=== PATIENT | female | born 2000 | race Caucasian/White ===

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

== ENCOUNTER 2020-03-08 11:15 | Emergency (ER) | payer MEDICAID ==
[2020-03-08] MEDS ORDERED: Acetaminophen 325 MG Tab PO ONE (11:38)
--- NOTE | 2020-03-08 12:18 | CT ---
CT neck Technique: Multiple axial sections were obtained from above C1 inferiorly to the bottom of T2. Reconstructed sagittal and coronal images were reviewed. Comparison: No prior cervical spine imaging is available. Findings: Partial block vertebra is noted between C5 and C6. Other disc spaces are maintained. Vertebral body heights are maintained. Vertebral bodies and posterior arches are intact. No acute fracture or subluxation is seen. Mild scoliosis is present. Impression: 1. 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 2. Mild scoliosis. 3. Nothing acute is appreciated on CT study of the cervical spine. Diagnostic code #2
--- NOTE | 2020-03-08 13:00 | CR ---
Chest: Portable view of the chest was obtained. Comparison: No prior chest imaging is available. Heart size and mediastinum are normal. Lungs are clear with no acute parenchymal change. No discrete acute bony abnormality is appreciated. Impression: 1. Nothing acute is seen on portable chest x-ray. Diagnostic code #1
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
== END 2020-03-08 13:17 | disposition home or self-care (01) ==
LOC: JD.ED 11:15 → SUPCPDRO 11:15 → JD.ED 13:17
DX: S16.1XXA Strain of muscle, fascia and tendon at neck level, initial encounter (principal); S40.811A Abrasion of right upper arm, initial encounter; M54.6 Pain in thoracic spine; V59.9XXA Occupant (driver) (passenger) of pick-up truck or van injured in unspecified traffic accident, initial encounter; Y92.410 Unspecified street and highway as the place of occurrence of the external cause
CPT/HCPCS: 36415; 71045; 72125; 84703; 85025; 99284; A9270; 99283

== ENCOUNTER 2021-08-16 22:33 | Emergency (ER) | payer MEDICAID ==
[2021-08-16] MEDS ORDERED: Famotidine 20 MG/2 ML SDV IVPUSH ONE (23:00)
[2021-08-16] MEDS ORDERED: EPINEPHrine 1 MG/ML SDV IM ONE (23:00)
[2021-08-16] MEDS ORDERED: methylPREDNISolone Sodium Succinate 125 MG/2 ML SDV IVPUSH ONE (23:00)
== END 2021-08-17 00:42 | disposition home or self-care (01) ==
LOC: JD.ED 22:33
DX: O9A.23 Injury, poisoning and certain other consequences of external causes complicating the puerperium (principal); T78.1XXA Other adverse food reactions, not elsewhere classified, initial encounter; Z91.018 Allergy to other foods; Z3A.11 11 weeks gestation of pregnancy
CPT/HCPCS: 96372; 96374; 96375; 99283; J0171; J2930; J3490; 99282

== ENCOUNTER 2022-03-09 01:36 | Inpatient (IN) | payer MEDICAID ==
[2022-03-09] MEDS ORDERED: Sodium Chloride 0.9% 10 ML Syringe FLUSH PRN (07:16)
[2022-03-09] MEDS ORDERED: Oxytocin/Lactated Ringers 10 UNIT/1,000 ML BAG IV SCH ×2 (07:30)
[2022-03-09] MEDS ORDERED: Misoprostol 25 MCG (1/4 of 100 MCG) Tab VAG ONE ×2 (08:01→12:00)
[2022-03-09] MEDS ORDERED: Sodium Chloride 0.9% 10 ML Syringe FLUSH SCH (09:00)
[2022-03-09] MEDS: Lactated Ringers 1,000 ML IV SCH ×3 (13:10→22:46)
[2022-03-09] MEDS: Ondansetron 4 MG/2 ML SDV IVPUSH PRN (13:41)
[2022-03-09] MEDS: Nalbuphine 10 MG/0.5 ML Syringe IVPUSH PRN ×2 (14:13→19:21)
[2022-03-09] MEDS ORDERED: ePHEDrine 50 MG/ML SDV IVPUSH PRN (21:32)
[2022-03-09] MEDS ORDERED: diphenhydrAMINE 50 MG/ML SDV IVPUSH PRN (21:32)
[2022-03-09] MEDS ORDERED: Bupivacaine/fentaNYL/NS 100 ML Bag EPIDUR PRN (21:32)
[2022-03-09] MEDS ORDERED: fentaNYL 100 MCG/2 ML SDV EPIDUR PRN (21:32)
[2022-03-10] MEDS ORDERED: Calcium Carbonate 500 MG Tab.Chew PO PRN (01:03)
[2022-03-10] MEDS ORDERED: Misoprostol 200 MCG Tab PO STA (01:58)
[2022-03-10] MEDS ORDERED: ceFAZolin 2 GM in Sodium Chloride 0.9% 50 ML IV ONE (01:59)
[2022-03-10] MEDS: Lactated Ringers 1,000 ML IV SCH (02:18)
[2022-03-10] MEDS: Ondansetron 4 MG/2 ML SDV IVPUSH PRN (03:19)
[2022-03-10] MEDS ORDERED: Lidocaine 1% 10 ML MDV ONE (04:00)
[2022-03-10] MEDS ORDERED: Acetaminophen 325 MG Tab PO PRN (07:17)
[2022-03-10] MEDS ORDERED: Ibuprofen 600 MG Tab PO PRN (07:17)
[2022-03-10] MEDS ORDERED: Docusate Sodium 100 MG Cap PO PRN (07:17)
[2022-03-10] MEDS ORDERED: Benzocaine/Menthol 20%-0.5% Spray 78 GM Cannister TOP PRN (07:17)
[2022-03-10] MEDS ORDERED: Witch Hazel Medicated Pads 40/Jar TOP PRN (07:17)
== END 2022-03-11 12:30 | disposition home or self-care (01) | DRG 807 ==
LOC: JD.OB 01:36 → OBSVTOIN 03-10 01:36 → JD.OB 03-10 01:37
PROVIDERS: ADMIT Obstetrics & Gynecology; ATTEND Obstetrics & Gynecology
PROC: 10E0XZZ Delivery of Products of Conception, External Approach (ICD-10-PCS; principal; 2022-03-10)
PROC: 10907ZC Drainage of Amniotic Fluid, Therapeutic from Products of Conception, Via Natural or Artificial Opening (ICD-10-PCS; 2022-03-10)
PROC: 3E0P7VZ Introduction of Hormone into Female Reproductive, Via Natural or Artificial Opening (ICD-10-PCS; 2022-03-10)
PROC: 3E033VJ Introduction of Other Hormone into Peripheral Vein, Percutaneous Approach (ICD-10-PCS; 2022-03-10)
PROC: 0UQMXZZ Repair Vulva, External Approach (ICD-10-PCS; 2022-03-10)
PROC: 3E0R3BZ Introduction of Anesthetic Agent into Spinal Canal, Percutaneous Approach (ICD-10-PCS; 2022-03-10)
PROC: 00HU33Z Insertion of Infusion Device into Spinal Canal, Percutaneous Approach (ICD-10-PCS; 2022-03-10)
DX: O48.0 Post-term pregnancy (principal); Z37.0 Single live birth; O99.334 Smoking (tobacco) complicating childbirth; F17.290 Nicotine dependence, other tobacco product, uncomplicated; Z3A.40 40 weeks gestation of pregnancy; Z91.018 Allergy to other foods; Z91.010 Allergy to peanuts
CPT/HCPCS: 01967; 36415; 51702; 59025; 59409; 85025; 86592; 86850; 86900; 86901; A9270-GY; C1726; J0690; J2300; J2405; J2590; J7120